=== PATIENT | female | born 1975 | race Caucasian/White ===

== ENCOUNTER → 2016-09-07 | Outpatient (CLI) | payer OTHER | LOC: MC.RAD 09:00 | DX: R59.0 Localized enlarged lymph nodes (principal) ==

== ENCOUNTER → 2018-12-19 | Outpatient (CLI) | payer OTHER | LOC: MC.RAD 14:54 | DX: Z12.31 Encounter for screening mammogram for malignant neoplasm of breast (principal) ==

== ENCOUNTER → 2021-02-08 | Outpatient (CLI) | payer OTHER | LOC: MC.RAD 16:45 | DX: Z12.31 Encounter for screening mammogram for malignant neoplasm of breast (principal) ==